=== PATIENT | female | born 1940 | race Caucasian/White ===

== ENCOUNTER 2016-06-20 18:52 | Emergency (ER) | payer OTHER ==
[2016-06-20] MEDS ORDERED: KETOROLAC 30 MG/ML VIAL (J1885) As Ordered ONE (20:47)
--- NOTE | 2016-06-20 21:50 | ECGEPIP ---
Stationary ECG Study [facility] - ED Test Date: 2016-06-20 Pat Name: MARTIN JUAREZ Department: Room: - Gender: F It Project Manager: raudel : 1940 Requested By: SHILO WREN PA-C. Order Number: [id number] Reading MD: Zane Sheehan Measurements Intervals [place] Rate: 63 P: 61 [place]: 171 QRS: -6 QRSD: 90 T: 48 QT: 429 QTc: 440 Interpretive Statements SINUS RHYTHM MODERATE VOLTAGE CRITERIA FOR LVH, CONSIDER NORMAL VARIANT Electronically Signed On 06-20-2016 21:50:23 EST by Zane Sheehan
--- NOTE | 2016-06-20 22:03 | EDDOCDS ---
Physician Documentation [facility] Name: Tatiana Cooley Age: 75 yrs Sex: Female : 1940 Arrival Date: 06/20/2016 Time: 18:52 Bed TR7 Private MD: Frank England Disposition: 06/20/16 21:24 Discharged to Home/Self Care. Impression: Radiculopathy, lumbar region - due to scoliosis, degenerative disc disease and spondylolisthesis lumbar spine, Pain in right hip - mild osteoarthritis. - Condition is Stable. - Discharge Instructions: Arthritis, Nonspecific, Lumbosacral Radiculopathy. - Prescriptions for Naprosyn 250 mg Oral Tablet - take 1 tablet by ORAL route every 12 hours take with food; 30 tablet. - Medication Reconciliation, Local Pharmacy Hours form. - Follow up: Frank England MD; When: 2 - 3 days; Reason: Recheck today's complaints, Continuance of care. Follow up: Emergency Department; When: As needed; Reason: Trouble breathing, Worsening of conditions. - Problem is new. - Symptoms have improved. Historical: - Allergies: Codeine Sulfate (Swelling); Lisinopril (Cough); Latex (Dermatitis); Darvocet-N 100 (Swelling); Flexeril (Swelling); Procardia (Swelling); Ultram (Swelling); Vicodin (Swelling); fioronel (Swelling); Keflex (Swelling); Dairy Products (Swelling); - Home Meds: 1. carvedilol 6.25 mg oral tab 1 tab 2 times per day 2. losartan 100 mg oral tab 1 tab once daily 3. Sertraline 100 mg daily 4. simvastatin 40 mg Oral tab 1 tab once daily 5. trazodone 100 mg Oral tab nightly 6. Nasonex 50 mcg/actuation Nasal spry 2 sprays once daily 7. aspirin 81 mg Oral TbEC 1 tab once daily 8. Vitamin B-12 1,000 mcg Oral tab daily 9. Vitamin D Oral 1,000 unit daily 10. Restasis daily - PMHx: Hypertension; "broken heart syndrome"; Seasonal Allergies; Hypercholesterolemia; Depression; Anxiety; - PSHx: Knee Arthroplasty, Left; Knee surgery- Right; - Social history: Smoking status: Patient states was never smoker of tobacco. No barriers to communication noted, The patient speaks fluent Sami. - Family history: Not pertinent. - : The pt / caregiver states he / she is not on anticoagulants. Home medication list is obtained from the patient. - Exposure Risk Screening:: None identified. Vital Signs: 06/20 18:54 BP 197 / 104; Pulse 66; Resp 16; Temp 98.1(O); Pulse Ox 98% on R/A; Weight 66.68 kg / elp 147 lbs (R); Height 5 ft. 2 in. (157.48 cm) (R); Pain 10/10; 19:52 BP 186 / 78 LA Sitting (man/reg); cln 21:31 Pulse 67 MON; Resp 22 S; Temp 98.7(TE); Pulse Ox 97% on R/A; Pain 8/10; cln 21:34 BP 191 / 64 RA Sitting (man/reg); cln 18:54 Body Mass Index 26.89 (66.68 kg, 157.48 cm) elp MDM: 19:37 Vital Signs ordered. ar2 19:37 ECG WITH READING ER PHYS+CARDIAG ordered. EDMS 19:38 Hip, (AP/Lat) Ordered. EDMS 19:38 Spine. Lumbosacral, Complete Ordered. EDMS 20:43 ketorolac 30 mg IM once ordered. ar2 21:38 Financial registration complete. ks16 21:48 [facility] Payment Agreement was scanned into [employer] and attached to record. [email or web address] Administered Medications: 20:51 Drug: ketorolac 30 mg [ketorolac 30 mg/mL (1 mL) injection solution (1 mL)] Route: IM; [facility] Site: left gluteus; Signatures: Dispatcher [employer] EDMS Holly Hernandez RN RN kmg1 Ramsey Woodward, KASHIF PALashawn ar2 Katherine Gordillo RN RN af2 Katie Simon, Reg Reg ks16 The chart was reviewed and I authenticate all verbal orders and agree with the evaluation and treatment provided.Attachments: 21:48 [facility] Payment Agreement ks16 MTDD
--- NOTE | 2016-06-20 22:03 | EDDOCDS ---
Nurse's Notes [facility] Name: Tatiana Cooley Age: 75 yrs Sex: Female : 1940 Arrival Date: 06/20/2016 Time: 18:52 Bed TR7 Private MD: Frank England Diagnosis: Radiculopathy, lumbar region-due to scoliosis, degenerative disc disease and spondylolisthesis lumbar spine;Pain in right hip-mild osteoarthritis Presentation: 06/20 19:01 Presenting complaint: Patient states: severe pain in left groin and hip, since last af2 Tuesday. denies injury. Adult Sepsis Screening: The patient does not have new or worsening altered mentation. Patient's respiratory rate is less than 22. Systolic blood pressure is greater than 100. Patient has a qSOFA score of 0- Negative Sepsis Screen. Suicide/Homicide risk assessment- the patient denies having any suicidal and/or homicidal ideations and does not present with any other emotional, behavioral or mental health complaints. Status: Patient is not a line service attendant or dependent. Transition of care: patient was not received from another setting of care. 19:01 Acuity: COSTA Level 4 af2 19:01 Method Of Arrival: Walkin/Carried/Asstd af2 Triage Assessment: 19:09 General: Appears in no apparent distress, Behavior is cooperative. Pain: Location: left af2 hip and left inner thigh Pain currently is 10 out of 10 on a pain scale. GI: Reports none. Derm: Skin is normal. Historical: - Allergies: Codeine Sulfate (Swelling); Lisinopril (Cough); Latex (Dermatitis); Darvocet-N 100 (Swelling); Flexeril (Swelling); Procardia (Swelling); Ultram (Swelling); Vicodin (Swelling); fioronel (Swelling); Keflex (Swelling); Dairy Products (Swelling); - Home Meds: 1. carvedilol 6.25 mg oral tab 1 tab 2 times per day 2. losartan 100 mg oral tab 1 tab once daily 3. Sertraline 100 mg daily 4. simvastatin 40 mg Oral tab 1 tab once daily 5. trazodone 100 mg Oral tab nightly 6. Nasonex 50 mcg/actuation Nasal spry 2 sprays once daily 7. aspirin 81 mg Oral TbEC 1 tab once daily 8. Vitamin B-12 1,000 mcg Oral tab daily 9. Vitamin D Oral 1,000 unit daily 10. Restasis daily - PMHx: Hypertension; "broken heart syndrome"; Seasonal Allergies; Hypercholesterolemia; Depression; Anxiety; - PSHx: Knee Arthroplasty, Left; Knee surgery- Right; - Social history: Smoking status: Patient states was never smoker of tobacco. No barriers to communication noted, The patient speaks fluent Wolof. - Family history: Not pertinent. - : The pt / caregiver states he / she is not on anticoagulants. Home medication list is obtained from the patient. - Exposure Risk Screening:: None identified. Screenin:43 Screening information is obtained from the patient. Fall risk: No risks identified. kmg1 Assistance ADL's: requires no assistance with activities of daily living. Abuse/DV Screen: The patient / caregiver reports he/she is: not in a situation that causes fear, pain or injury. Nutritional screening: No deficits noted. Advance Directives: There is no active DNR order. home support is adequate. Assessment: 20:50 General: Appears uncomfortable, Behavior is appropriate for age, cooperative, pleasant. kmg1 Pain: Location: coccyx, left lower back, left femoral area, left inguinal area and left hip Pain currently is 10 out of 10 on a pain scale. Quality of pain is described as radiating, sharp, shooting. GI: No deficits noted. 21:43 Reassessment: Patient appears in no apparent distress at this time. Patient states kmg1 feeling better. Patient states symptoms have improved. 22:01 GI: kmg1 Vital Signs: 18:54 BP 197 / 104; Pulse 66; Resp 16; Temp 98.1(O); Pulse Ox 98% on R/A; Weight 66.68 kg elp (R); Height 5 ft. 2 in. (157.48 cm) (R); Pain 10/10; 19:52 BP 186 / 78 LA Sitting (man/reg); cln 21:31 Pulse 67 MON; Resp 22 S; Temp 98.7(TE); Pulse Ox 97% on R/A; Pain 8/10; cln 21:34 BP 191 / 64 RA Sitting (man/reg); cln 18:54 Body Mass Index 26.89 (66.68 kg, 157.48 cm) elp Vitals: 18:54 Log In Time: June 20, 2016 at 18:52. elp ED Course: 18:53 Patient visited by Roro Driver PCA. elp 18:53 Frank England MD is Private Physician. elp 18:53 Patient moved to Waiting elp 18:55 Patient visited by Roro Driver PCA. elp 18:55 Patient moved to Pre RCE elp 19:02 Triage Initiated af2 19:10 Patient visited by Katherine Gordillo RN. af2 19:22 Patient moved to Triage 3 cln 19:23 Ramsey Woodward PA-C is [facility]. ar2 19:23 Red Rae DO is Attending Physician. ar2 19:23 Patient visited by Ramsey Woodward PA-C. ar2 19:49 Patient visited by Saniya Santamaria PCA. cln 19:49 EKG done. (by ED staff). Reviewed by Ramsey Woodward PA-C. cln 19:52 Patient visited by Saniya Santamaria PCA. cln 19:54 Patient moved to TR1 cln 20:16 Patient moved to PR2 / 26 mb9 21:23 Frank England MD is Referral Physician. ar2 21:31 Patient visited by Saniya Santamaria PCA. cln 21:35 Patient visited by Saniya Santamaria PCA. cln 21:43 Patient moved to TR2 cln 21:43 The patient / caregiver is instructed regarding the plan of care and ED course. kmg1 21:43 No IV's were initiated during this patient's visit. No procedures done that require kmg1 assistance. 21:48 [facility] Payment Agreement was scanned into [employer] and attached to record. ks16 21:53 Patient moved to TR7 cln Administered Medications: 20:51 Drug: ketorolac 30 mg [ketorolac 30 mg/mL (1 mL) injection solution (1 mL)] Route: IM; kmg1 Site: left gluteus; Order Results: There are currently no results for this order. Outcome: 21:24 Discharge ordered by Provider. ar2 21:43 Discharge Assessment: Patient awake, alert and oriented x 3. No cognitive and/or kmg1 functional deficits noted. Patient verbalized understanding of disposition instructions. Patient awake and alert. patient administered narcotics - no. The following High Risk Discharge criteria are identified: None. Discharged to home ambulatory. Condition: stable. Discharge instructions given to patient, Instructed on discharge instructions, follow up and referral plans. medication usage, Demonstrated understanding of instructions, medications, Pt was receptive of discharge instructions/ teaching. Prescriptions given X 1. No special radiology studies were completed. Property sent home with patient. 22:01 Patient left the ED. kmg1 Signatures: Holly Hernandez, RN RN kmg1 Ramsey Woodward, KASHIF PALashawn ar2 Roro Driver, TERRA COTTA MOLD MAKER TERRA COTTA MOLD MAKER elp Rom Almeida,RN RN mb9 Katherine GordilloRN RN af2 Katie Simon, Reg Reg ks16 Saniya Santamaria, TERRA COTTA MOLD MAKER TERRA COTTA MOLD MAKER cln MTDD
--- NOTE | 2016-06-21 09:05 | REP ---
Clinical: Left hip pain. Technique: Neutral and frog lateral views of the left hip. Findings: Moderate age-related arthritic changes include subtle increased subchondral sclerosis as well as joint space narrowing and spurring along the anterior superior acetabula. No acute fracture or dislocation. No periarticular calcifications. Surrounding soft tissues are normal. Impression: Mild age-related arthritic degenerative changes Signed by Dinh Yi MD 06/21/2016 08:57 A
--- NOTE | 2016-06-21 09:07 | REP ---
Clinical: Radiculopathy. Technique: AP, lateral, bilateral oblique and coned-down views of the lumbosacral spine. Findings: Advanced chronic degenerative disc osteophyte complexes are appreciated. Findings include chronic mild levoconvex scoliosis centered at the T12-L1 level along with osteopenia, osteophytosis, hypertrophic facet changes, disc space narrowing, and grade 1 anterolisthesis at the L4-5 level. No acute fracture / compression injury identified. Impression: Advanced degenerative changes as detailed above. Signed by Dinh Yi MD 06/21/2016 08:58 A
--- NOTE | 2016-06-22 23:02 | EDDOCDS ---
Physician Documentation [facility] Name: Tatiana Cooley Age: 75 yrs Sex: Female : 1940 Arrival Date: 06/20/2016 Time: 18:52 Bed TR7 Private MD: Frank England Disposition: 06/20/16 21:24 Discharged to Home/Self Care. Impression: Radiculopathy, lumbar region - due to scoliosis, degenerative disc disease and spondylolisthesis lumbar spine, Pain in right hip - mild osteoarthritis. - Condition is Stable. - Discharge Instructions: Arthritis, Nonspecific, Lumbosacral Radiculopathy. - Prescriptions for Naprosyn 250 mg Oral Tablet - take 1 tablet by ORAL route every 12 hours take with food; 30 tablet. - Medication Reconciliation, Local Pharmacy Hours form. - Follow up: Frank England MD; When: 2 - 3 days; Reason: Recheck today's complaints, Continuance of care. Follow up: Emergency Department; When: As needed; Reason: Trouble breathing, Worsening of conditions. - Problem is new. - Symptoms have improved. Historical: - Allergies: Codeine Sulfate (Swelling); Lisinopril (Cough); Latex (Dermatitis); Darvocet-N 100 (Swelling); Flexeril (Swelling); Procardia (Swelling); Ultram (Swelling); Vicodin (Swelling); fioronel (Swelling); Keflex (Swelling); Dairy Products (Swelling); - Home Meds: 1. carvedilol 6.25 mg oral tab 1 tab 2 times per day 2. losartan 100 mg oral tab 1 tab once daily 3. Sertraline 100 mg daily 4. simvastatin 40 mg Oral tab 1 tab once daily 5. trazodone 100 mg Oral tab nightly 6. Nasonex 50 mcg/actuation Nasal spry 2 sprays once daily 7. aspirin 81 mg Oral TbEC 1 tab once daily 8. Vitamin B-12 1,000 mcg Oral tab daily 9. Vitamin D Oral 1,000 unit daily 10. Restasis daily - PMHx: Hypertension; "broken heart syndrome"; Seasonal Allergies; Hypercholesterolemia; Depression; Anxiety; - PSHx: Knee Arthroplasty, Left; Knee surgery- Right; - Social history: Smoking status: Patient states was never smoker of tobacco. No barriers to communication noted, The patient speaks fluent Irish. - Family history: Not pertinent. - : The pt / caregiver states he / she is not on anticoagulants. Home medication list is obtained from the patient. - Exposure Risk Screening:: None identified. Vital Signs: 06/20 18:54 BP 197 / 104; Pulse 66; Resp 16; Temp 98.1(O); Pulse Ox 98% on R/A; Weight 66.68 kg / elp 147 lbs (R); Height 5 ft. 2 in. (157.48 cm) (R); Pain 10/10; 19:52 BP 186 / 78 LA Sitting (man/reg); cln 21:31 Pulse 67 MON; Resp 22 S; Temp 98.7(TE); Pulse Ox 97% on R/A; Pain 8/10; cln 21:34 BP 191 / 64 RA Sitting (man/reg); cln 18:54 Body Mass Index 26.89 (66.68 kg, 157.48 cm) elp MDM: 19:37 Vital Signs ordered. ar2 19:37 ECG WITH READING ER PHYS+CARDIAG ordered. EDMS 19:38 Hip, (AP/Lat) Ordered. EDMS 19:38 Spine. Lumbosacral, Complete Ordered. EDMS 20:43 ketorolac 30 mg IM once ordered. ar2 21:38 Financial registration complete. [email or web address] 21:48 [facility] Payment Agreement was scanned into [employer] and attached to record. [facility] 06/21 11:46 T-Sheet-- Draft Copy was scanned into [employer] and attached to record. 11:47 ECG/EKG was scanned into [employer] and attached to record. gb Administered Medications: 06/20 20:51 Drug: ketorolac 30 mg [ketorolac 30 mg/mL (1 mL) injection solution (1 mL)] Route: IM; km Site: left gluteus; Signatures: Dispatcher [employer] EDMS Holly Hernandez RN RN kmg1 Lyudmila Hyatt, Reg Reg gb Ramsey Woodward PA-C PA-C ar2 Katherine Gordillo RN RN af2 Katie Simon, Reg Reg ks16 The chart was reviewed and I authenticate all verbal orders and agree with the evaluation and treatment provided.Attachments: 21:48 [facility] Payment Agreement [email or web address] 06/21 11:46 T-Sheet-- Draft Copy gb 11:47 ECG/EKG gb Chart Complete MTDD
--- NOTE | 2016-06-22 23:02 | EDDOCDS ---
Physician Documentation [facility] Name: Tatiana Cooley Age: 75 yrs Sex: Female : 1940 Arrival Date: 06/20/2016 Time: 18:52 Bed TR7 Private MD: Frank England Disposition: 06/20/16 21:24 Discharged to Home/Self Care. Impression: Radiculopathy, lumbar region - due to scoliosis, degenerative disc disease and spondylolisthesis lumbar spine, Pain in right hip - mild osteoarthritis. - Condition is Stable. - Discharge Instructions: Arthritis, Nonspecific, Lumbosacral Radiculopathy. - Prescriptions for Naprosyn 250 mg Oral Tablet - take 1 tablet by ORAL route every 12 hours take with food; 30 tablet. - Medication Reconciliation, Local Pharmacy Hours form. - Follow up: Frank England MD; When: 2 - 3 days; Reason: Recheck today's complaints, Continuance of care. Follow up: Emergency Department; When: As needed; Reason: Trouble breathing, Worsening of conditions. - Problem is new. - Symptoms have improved. Historical: - Allergies: Codeine Sulfate (Swelling); Lisinopril (Cough); Latex (Dermatitis); Darvocet-N 100 (Swelling); Flexeril (Swelling); Procardia (Swelling); Ultram (Swelling); Vicodin (Swelling); fioronel (Swelling); Keflex (Swelling); Dairy Products (Swelling); - Home Meds: 1. carvedilol 6.25 mg oral tab 1 tab 2 times per day 2. losartan 100 mg oral tab 1 tab once daily 3. Sertraline 100 mg daily 4. simvastatin 40 mg Oral tab 1 tab once daily 5. trazodone 100 mg Oral tab nightly 6. Nasonex 50 mcg/actuation Nasal spry 2 sprays once daily 7. aspirin 81 mg Oral TbEC 1 tab once daily 8. Vitamin B-12 1,000 mcg Oral tab daily 9. Vitamin D Oral 1,000 unit daily 10. Restasis daily - PMHx: Hypertension; "broken heart syndrome"; Seasonal Allergies; Hypercholesterolemia; Depression; Anxiety; - PSHx: Knee Arthroplasty, Left; Knee surgery- Right; - Social history: Smoking status: Patient states was never smoker of tobacco. No barriers to communication noted, The patient speaks fluent Portuguese. - Family history: Not pertinent. - : The pt / caregiver states he / she is not on anticoagulants. Home medication list is obtained from the patient. - Exposure Risk Screening:: None identified. Vital Signs: 06/20 18:54 BP 197 / 104; Pulse 66; Resp 16; Temp 98.1(O); Pulse Ox 98% on R/A; Weight 66.68 kg / elp 147 lbs (R); Height 5 ft. 2 in. (157.48 cm) (R); Pain 10/10; 19:52 BP 186 / 78 LA Sitting (man/reg); cln 21:31 Pulse 67 MON; Resp 22 S; Temp 98.7(TE); Pulse Ox 97% on R/A; Pain 8/10; cln 21:34 BP 191 / 64 RA Sitting (man/reg); cln 18:54 Body Mass Index 26.89 (66.68 kg, 157.48 cm) elp MDM: 19:37 Vital Signs ordered. ar2 19:37 ECG WITH READING ER PHYS+CARDIAG ordered. EDMS 19:38 Hip, (AP/Lat) Ordered. EDMS 19:38 Spine. Lumbosacral, Complete Ordered. EDMS 20:43 ketorolac 30 mg IM once ordered. ar2 21:38 Financial registration complete. [email or web address] 21:48 [facility] Payment Agreement was scanned into [employer] and attached to record. [facility] 06/21 11:46 T-Sheet-- Draft Copy was scanned into [employer] and attached to record. 11:47 ECG/EKG was scanned into [employer] and attached to record. gb Administered Medications: 06/20 20:51 Drug: ketorolac 30 mg [ketorolac 30 mg/mL (1 mL) injection solution (1 mL)] Route: IM; km Site: left gluteus; Signatures: Dispatcher [employer] EDMS Holly Hernandez RN RN kmg1 Lyudmila Hyatt, Reg Reg gb Ramsey Woodward PA-C PA-C ar2 Katherine Gordillo RN RN af2 Katie Simon, Reg Reg ks16 The chart was reviewed and I authenticate all verbal orders and agree with the evaluation and treatment provided.Attachments: 21:48 [facility] Payment Agreement [email or web address] 06/21 11:46 T-Sheet-- Draft Copy gb 11:47 ECG/EKG gb Chart Complete MTDD
--- NOTE | 2016-06-22 23:02 | EDDOCDS ---
Nurse's Notes [facility] Name: Tatiana Cooley Age: 75 yrs Sex: Female : 1940 Arrival Date: 06/20/2016 Time: 18:52 Bed TR7 Private MD: Frank England Diagnosis: Radiculopathy, lumbar region-due to scoliosis, degenerative disc disease and spondylolisthesis lumbar spine;Pain in right hip-mild osteoarthritis Presentation: 06/20 19:01 Presenting complaint: Patient states: severe pain in left groin and hip, since last af2 Tuesday. denies injury. Adult Sepsis Screening: The patient does not have new or worsening altered mentation. Patient's respiratory rate is less than 22. Systolic blood pressure is greater than 100. Patient has a qSOFA score of 0- Negative Sepsis Screen. Suicide/Homicide risk assessment- the patient denies having any suicidal and/or homicidal ideations and does not present with any other emotional, behavioral or mental health complaints. Status: Patient is not a rn women services or dependent. Transition of care: patient was not received from another setting of care. 19:01 Acuity: COSTA Level 4 af2 19:01 Method Of Arrival: Walkin/Carried/Asstd af2 Triage Assessment: 19:09 General: Appears in no apparent distress, Behavior is cooperative. Pain: Location: left af2 hip and left inner thigh Pain currently is 10 out of 10 on a pain scale. GI: Reports none. Derm: Skin is normal. Historical: - Allergies: Codeine Sulfate (Swelling); Lisinopril (Cough); Latex (Dermatitis); Darvocet-N 100 (Swelling); Flexeril (Swelling); Procardia (Swelling); Ultram (Swelling); Vicodin (Swelling); fioronel (Swelling); Keflex (Swelling); Dairy Products (Swelling); - Home Meds: 1. carvedilol 6.25 mg oral tab 1 tab 2 times per day 2. losartan 100 mg oral tab 1 tab once daily 3. Sertraline 100 mg daily 4. simvastatin 40 mg Oral tab 1 tab once daily 5. trazodone 100 mg Oral tab nightly 6. Nasonex 50 mcg/actuation Nasal spry 2 sprays once daily 7. aspirin 81 mg Oral TbEC 1 tab once daily 8. Vitamin B-12 1,000 mcg Oral tab daily 9. Vitamin D Oral 1,000 unit daily 10. Restasis daily - PMHx: Hypertension; "broken heart syndrome"; Seasonal Allergies; Hypercholesterolemia; Depression; Anxiety; - PSHx: Knee Arthroplasty, Left; Knee surgery- Right; - Social history: Smoking status: Patient states was never smoker of tobacco. No barriers to communication noted, The patient speaks fluent Khmer. - Family history: Not pertinent. - : The pt / caregiver states he / she is not on anticoagulants. Home medication list is obtained from the patient. - Exposure Risk Screening:: None identified. Screenin:43 Screening information is obtained from the patient. Fall risk: No risks identified. kmg1 Assistance ADL's: requires no assistance with activities of daily living. Abuse/DV Screen: The patient / caregiver reports he/she is: not in a situation that causes fear, pain or injury. Nutritional screening: No deficits noted. Advance Directives: There is no active DNR order. home support is adequate. Assessment: 20:50 General: Appears uncomfortable, Behavior is appropriate for age, cooperative, pleasant. kmg1 Pain: Location: coccyx, left lower back, left femoral area, left inguinal area and left hip Pain currently is 10 out of 10 on a pain scale. Quality of pain is described as radiating, sharp, shooting. GI: No deficits noted. 21:43 Reassessment: Patient appears in no apparent distress at this time. Patient states kmg1 feeling better. Patient states symptoms have improved. 22:01 GI: kmg1 Vital Signs: 18:54 BP 197 / 104; Pulse 66; Resp 16; Temp 98.1(O); Pulse Ox 98% on R/A; Weight 66.68 kg elp (R); Height 5 ft. 2 in. (157.48 cm) (R); Pain 10/10; 19:52 BP 186 / 78 LA Sitting (man/reg); cln 21:31 Pulse 67 MON; Resp 22 S; Temp 98.7(TE); Pulse Ox 97% on R/A; Pain 8/10; cln 21:34 BP 191 / 64 RA Sitting (man/reg); cln 18:54 Body Mass Index 26.89 (66.68 kg, 157.48 cm) elp Vitals: 18:54 Log In Time: June 20, 2016 at 18:52. [facility] ED Course: 18:53 Patient visited by Roro Driver PCA. elp 18:53 Frank England MD is Private Physician. elp 18:53 Patient moved to Waiting elp 18:55 Patient visited by Roro Driver PCA. elp 18:55 Patient moved to Pre RCE elp 19:02 Triage Initiated af2 19:10 Patient visited by Katherine GordilloRN. af2 19:22 Patient moved to Triage 3 cln 19:23 Ramsey Wren PA-C is [facility]. ar2 19:23 Red Rae DO is Attending Physician. ar2 19:23 Patient visited by Ramsey Wren PA-C. ar2 19:49 Patient visited by Saniya Santamaria PCA. cln 19:49 EKG done. (by ED staff). Reviewed by Ramsey Wren PA-C. cln 19:52 Patient visited by Saniya Santamaria PCA. cln 19:54 Patient moved to TR1 cln 20:16 Patient moved to PR2 / 26 mb9 21:23 Frank England MD is Referral Physician. ar2 21:31 Patient visited by Saniya Santamaria PCA. cln 21:35 Patient visited by Saniya Santamaria PCA. cln 21:43 Patient moved to TR2 cln 21:43 The patient / caregiver is instructed regarding the plan of care and ED course. kmg1 21:43 No IV's were initiated during this patient's visit. No procedures done that require kmg1 assistance. 21:48 [facility] Payment Agreement was scanned into Bringg and attached to record. ks16 21:53 Patient moved to TR7 cln 22:16 EKG-ADULT Returned. EDMS 06/21 09:23 Hip, (AP/Lat) Returned. EDMS 09:23 Spine. Lumbosacral, Complete Returned. EDMS 11:46 T-Sheet-- Draft Copy was scanned into Bringg and attached to record. gb 11:47 ECG/EKG was scanned into Bringg and attached to record. gb Administered Medications: 06/20 20:51 Drug: ketorolac 30 mg [ketorolac 30 mg/mL (1 mL) injection solution (1 mL)] Route: IM; kmg1 Site: left gluteus; Order Results: Radiology Order: EKG-ADULT Test: EKG-ADULT REASON FOR EXAMINATION: htn; Stationary ECG Study; [facility] - ED; ; Test Date: 2016-06-20; Pat Name: TATIANA COOLEY Department:; Room: -; Gender: F Cop Winder: raudel; : 1940 Requested By: RAMSEY WREN PA-C.; Order Number: [id number] Reading MD: Zane Sheehan; Measurements; Intervals Dodge; Rate: 63 P: 61; NC: 171 QRS: -6; QRSD: 90 T: 48; QT: 429; QTc: 440; Interpretive Statements; SINUS RHYTHM; MODERATE VOLTAGE CRITERIA FOR LVH, CONSIDER NORMAL VARIANT; ; Electronically Signed On 06-20-2016 21:50:23 EST by Zane Sheehan; Radiology Order: Hip, (AP/Lat) Test: Hip, (AP/Lat) REASON FOR EXAMINATION: left hip pain, spontaneous; Clinical: Left hip pain.; ; Technique: Neutral and frog lateral views of the left hip.; ; Findings: Moderate age-related arthritic changes include subtle increased; subchondral sclerosis as well as joint space narrowing and spurring along the; anterior superior acetabula. No acute fracture or dislocation. No periarticular; calcifications. Surrounding soft tissues are normal.; ; Impression:; Mild age-related arthritic degenerative changes; ; ; Signed by; Dinh Yi MD 06/21/2016 08:57 A; Radiology Order: Spine. Lumbosacral, Complete Test: Spine. Lumbosacral, Complete REASON FOR EXAMINATION: ? lumbar radiculopathy; Clinical: Radiculopathy.; ; Technique: AP, lateral, bilateral oblique and coned-down views of the; lumbosacral spine.; ; Findings:; Advanced chronic degenerative disc osteophyte complexes are appreciated.; Findings include chronic mild levoconvex scoliosis centered at the T12-L1 level; along with osteopenia, osteophytosis, hypertrophic facet changes, disc space; narrowing, and grade 1 anterolisthesis at the L4-5 level. No acute fracture /; compression injury identified.; ; Impression:; Advanced degenerative changes as detailed above.; ; ; Signed by; Dinh Yi MD 06/21/2016 08:58 A; Outcome: 21:24 Discharge ordered by Provider. ar2 21:43 Discharge Assessment: Patient awake, alert and oriented x 3. No cognitive and/or kmg1 functional deficits noted. Patient verbalized understanding of disposition instructions. Patient awake and alert. patient administered narcotics - no. The following High Risk Discharge criteria are identified: None. Discharged to home ambulatory. Condition: stable. Discharge instructions given to patient, Instructed on discharge instructions, follow up and referral plans. medication usage, Demonstrated understanding of instructions, medications, Pt was receptive of discharge instructions/ teaching. Prescriptions given X 1. No special radiology studies were completed. Property sent home with patient. 22:01 Patient left the ED. [facility] [place] Signatures: Dispatcher [employer] EDMS Holly Hernandez, RN RN kmg1 Lyudmila Hyatt, Reg Reg gb Ramsey Wren, PA-C PA-C ar2 Roro Driver, ENDS DOWN CHECKER ENDS DOWN CHECKER Rom LaurenRN RN mb9 Katherine Gordillo RN RN af2 Katie Simon, Reg Reg ks16 Saniya Santamaria, ENDS DOWN CHECKER ENDS DOWN CHECKER cln Chart Complete MTDD
== END 2016-06-20 22:01 | disposition home or self-care (01) ==
LOC: M ED 18:52
DX: M54.16 Radiculopathy, lumbar region (principal); M41.9 Scoliosis, unspecified; M43.16 Spondylolisthesis, lumbar region; M51.37 Other intervertebral disc degeneration, lumbosacral region; M16.12 Unilateral primary osteoarthritis, left hip; I10 Essential (primary) hypertension; J30.9 Allergic rhinitis, unspecified; E78.00 Pure hypercholesterolemia, unspecified; F32.9 Major depressive disorder, single episode, unspecified; F41.9 Anxiety disorder, unspecified; I51.81 Takotsubo syndrome; Z96.652 Presence of left artificial knee joint; Z79.82 Long term (current) use of aspirin; Z79.899 Other long term (current) drug therapy; Z88.2 Allergy status to sulfonamides; Z88.5 Allergy status to narcotic agent; Z88.1 Allergy status to other antibiotic agents; Z88.8 Allergy status to other drugs, medicaments and biological substances; Z91.040 Latex allergy status; Z91.011 Allergy to milk products
CPT/HCPCS: 72110; 73502; 93005; 96372; 99284; J1885

== ENCOUNTER 2016-07-12 09:06 | Outpatient (RCR) | payer OTHER | END 2016-07-13 | LOC: M PT 09:06 | PROVIDERS: ATTEND Nurse Practitioner Family | DX: Z51.89 Encounter for other specified aftercare (principal); M54.5 Low back pain | CPT/HCPCS: 97110; 97140; 97162; G8978; G8979 ==

== ENCOUNTER 2016-08-04 09:07 | Outpatient (RCR) | payer OTHER | END 2016-08-10 | LOC: M PT 09:07 | PROVIDERS: ATTEND Nurse Practitioner Family | DX: M54.5 Low back pain (principal) | CPT/HCPCS: 97035; 97110; 97140; G8978; G8979; G8980 ==

== ENCOUNTER → 2016-11-29 | Outpatient (CLI) | payer OTHER ==
[2016-11-29 11:54] LABS: MEAN CORPUSCULAR HEMOGLOBIN 34.5 pg (27.0-33.0); MEAN CORPUSCULAR HGB CONC 34.4 g/dl (32.0-36.5); MEAN CORPUSCULAR VOLUME 100.2 fl (80.0-96.0); RED CELL DISTRIBUTION WIDTH 12.9 % (11.5-14.5)
[2016-11-29 12:49] LABS: ALBUMIN 3.4 GM/DL (3.2-5.2); ALBUMIN/GLOBULIN RATIO 1.06 (1.00-1.93); BILIRUBIN,TOTAL 0.5 MG/DL (0.2-1.0); CALCIUM LEVEL 9.1 MG/DL (8.8-10.2); CREATININE FOR GFR 1.1 MG/DL (0.55-1.02); GLOMERULAR FILTRATION RATE 51.4 (>39); POTASSIUM SERUM 4.2 MEQ/L (3.5-5.1); TOTAL PROTEIN 6.6 GM/DL (6.4-8.2)
== END ==
LOC: M LAB 10:35
PROVIDERS: ATTEND Family Medicine
DX: I51.81 Takotsubo syndrome (principal); E78.00 Pure hypercholesterolemia, unspecified

== ENCOUNTER → 2016-12-16 | Outpatient (CLI) | payer OTHER ==
--- NOTE | 2016-12-20 10:19 | DEXA ---
AP SPINE L1 - L4 1.468 2.2 4.0 LT FEMUR TOTAL 0.804 -1.6 0.2 RT FEMUR TOTAL 0.885 -1.0 0.8 TOTAL BODY TOTAL OTHER DUAL FEMUR FRAX* ASSESSMENT Risk factors: Adult fractures. 10 year probability of fracture Major osteoporotic fracture 18.8 % Hip fracture 4.1 % COMMENTS: Normal bone densitometry of the spine. There is low bone density of the hips. The density of the spine has increased 10.9% since the initial exam on 1999. The spine density has increased 10.9% since the most recent exam on 07/20/2010. The density of the left hip has decreased 9.7% since the initial exam on 1999. The density of the left hip has decreased 5.7% since the most recent exam on 12/2010. The density of the right hip has decreased 6.2% since the initial exam on 1999. The density of the right hip has decreased 2.3% since the most recent exam on . FOLLOW-UP: Recommendation for the next bone density exam: No recommendation. MTDD
== END ==
LOC: M WHC 12:52
PROVIDERS: ATTEND Family Medicine
DX: M83.8 Other adult osteomalacia (principal)

== ENCOUNTER → 2016-12-31 | Outpatient (CLI) | payer OTHER ==
[~2016-12-31] MED LIST: GASTROGRAFIN SOLUTION 30ML (Q9963) As Ordered ONE; ISOVUE-370 76% 100ML VIAL (Q9967) As Ordered ONE
--- NOTE | 2016-12-31 16:03 | REP ---
CT of the abdomen and pelvis with IV and oral contrast: There are no comparison studies. The visualized lung pugh are unremarkable. There is pectus extra of the distal sternum. The hepatic parenchyma is homogeneous. The gallbladder is unremarkable. The pancreas and spleen are unremarkable. The stomach and duodenum are grossly unremarkable. The adrenals are unremarkable. There is bilateral renal cortical atrophy, not unusual for patient age. There are no renal masses or cysts. There is no hydronephrosis. There are parapelvic cysts in the left kidney. There is no bowel distension or obstruction. The mesentery is unremarkable. The abdominal aorta is unremarkable except for calcified atheroma. There is no retroperitoneal adenopathy or mass. Pelvis: The appendix is unremarkable. There is a hysterectomy. The vaginal cuff and adnexa are unremarkable. The bladder is unremarkable. There is no adenopathy or ascites. There is no diverticulosis or diverticulitis. There are no lytic, blastic or destructive skeletal changes. There is degenerative disc disease and facet osteoarthritis in the lumbar spine and lumbar scoliosis. Impression: There is no mass, adenopathy or ascites. There are para pelvic cysts in the left kidney. There is no bowel distension. There is scoliosis, degenerative disc disease and facet osteoarthritis in the lumbar spine. No diverticulosis or diverticulitis. There is a hysterectomy. The vaginal cuff and adnexa are unremarkable. Otherwise, negative CT of the abdomen and pelvis. Signed by Quinn Hoang MD 12/31/2016 03:54 P
== END ==
LOC: M RAD 14:02
PROVIDERS: ATTEND Family Medicine
DX: R10.13 Epigastric pain (principal); R14.0 Abdominal distension (gaseous); R68.81 Early satiety
CPT/HCPCS: 74177; Q9963; Q9967

== ENCOUNTER → 2017-11-04 | Outpatient (CLI) | payer OTHER ==
[2017-11-04 11:17] LABS: HEMATOCRIT 34.4 % (36.0-47.0); HEMOGLOBIN 11.7 g/dl (12.0-15.5); MEAN CORPUSCULAR HEMOGLOBIN 34.8 pg (27.0-33.0); MEAN CORPUSCULAR VOLUME 102.4 fl (80.0-96.0); PLATELET COUNT, AUTOMATED 193 10^3/uL (150-450); RED BLOOD COUNT 3.36 10^6/uL (4.00-5.40); RED CELL DISTRIBUTION WIDTH 12.7 % (11.5-14.5); WHITE BLOOD COUNT 5.2 10^3/uL (4.0-10.0)
[2017-11-04 11:55] LABS: TOTAL 25(OH) VITAMIN D 54.8 NG/ML (30.0-100.0); VITAMIN B12 LEVEL 1065 PG/ML (247-911)
[2017-11-04 11:57] LABS: ESTIMATED AVERAGE GLUCOSE 105 MG/DL (60-110); HEMOGLOBIN A1c 5.3 %
[2017-11-04 12:44] LABS: ALBUMIN 3.3 GM/DL (3.2-5.2); ALKALINE PHOSPHATASE 76 U/L (45-117); ALT/SGPT 19 U/L (12-78); ANION GAP 5 MEQ/L (8-16); AST/SGOT 14 U/L (7-37); BILIRUBIN,TOTAL 0.5 MG/DL (0.2-1.0); BLOOD UREA NITROGEN 21 MG/DL (7-18); CALCIUM LEVEL 8.9 MG/DL (8.8-10.2); CARBON DIOXIDE LEVEL 31 MEQ/L (21-32); CHLORIDE LEVEL 109 MEQ/L (98-107); CHOLESTEROL LEVEL 141 MG/DL (<200); CREATININE FOR GFR 1.19 MG/DL (0.55-1.30); GLOMERULAR FILTRATION RATE 46.9 (>39); GLUCOSE, FASTING 91 MG/DL (70-100); HDL CHOLESTEROL 53 MG/DL (>40); LDL CHOLESTEROL 70.6 MG/DL (<100); NON-HDL-C 88 MG/DL; POTASSIUM SERUM 4.6 MEQ/L (3.5-5.1); SODIUM LEVEL 145 MEQ/L (136-145); TOTAL PROTEIN 6.6 GM/DL (6.4-8.2); TRIGLYCERIDES LEVEL 87 MG/DL (<150)
== END ==
LOC: M LAB 10:33
DX: E53.8 Deficiency of other specified B group vitamins (principal); I11.9 Hypertensive heart disease without heart failure; E78.2 Mixed hyperlipidemia
CPT/HCPCS: 82607

== ENCOUNTER 2018-01-13 17:06 | Emergency (ER) | payer OTHER ==
[2018-01-13] MEDS ORDERED: LIDOCAINE W/EPINEPHRINE 1% 20ML VIAL SC (19:00)
[2018-01-13] MEDS: AUGMENTIN 875 MG TAB PO (19:21)
[2018-01-13] MEDS: ADACEL/BOOSTRIX VACCINE (DIPHTH/PERTUSS/ACELL/TETANUS)0.5ML SYR (90715) IM (19:21)
== END 2018-01-13 20:10 | disposition home or self-care (01) ==
LOC: M ED 17:06
DX: S91.032A Puncture wound without foreign body, left ankle, initial encounter (principal); W54.0XXA Bitten by dog, initial encounter; Y92.098 Other place in other non-institutional residence as the place of occurrence of the external cause; Z88.6 Allergy status to analgesic agent; Z88.8 Allergy status to other drugs, medicaments and biological substances; Z88.5 Allergy status to narcotic agent; Z91.040 Latex allergy status; Z91.018 Allergy to other foods
CPT/HCPCS: 90715

== ENCOUNTER 2018-03-21 18:33 | Emergency (ER) | payer OTHER ==
[2018-03-21 21:08] LABS: BASO % 0.4 % (0.0-1.0); EOS # 0.1 10^3/uL (0.0-0.50); EOS % 2.3 % (0.0-3.0); HEMATOCRIT 37.9 % (36.0-47.0); HEMOGLOBIN 12.3 g/dl (12.0-15.5); IMMATURE GRANULOCYTE % 0.2 % (0-3.0); LYMPH # 1.9 10^3/uL (1.5-4.5); LYMPH % 39.8 % (24.0-44.0); MEAN CORPUSCULAR HEMOGLOBIN 33.7 pg (27.0-33.0); MEAN CORPUSCULAR HGB CONC 32.5 g/dl (32.0-36.5); MEAN CORPUSCULAR VOLUME 103.8 fl (80.0-96.0); MONO # 0.5 10^3/uL (0.0-0.8); MONO % 10.4 % (0.0-5.0); NEUTROPHILS # 2.3 10^3/uL (1.8-7.7); NEUTROPHILS % 46.9 % (36.0-66.0); PLATELET COUNT, AUTOMATED 192 10^3/uL (150-450); RED BLOOD COUNT 3.65 10^6/uL (4.00-5.40); RED CELL DISTRIBUTION WIDTH 12.7 % (11.5-14.5); WHITE BLOOD COUNT 4.8 10^3/uL (4.0-10.0)
[2018-03-21 21:34] LABS: ALBUMIN 3.4 GM/DL (3.2-5.2); ALBUMIN/GLOBULIN RATIO 0.97 (1.00-1.93); ALKALINE PHOSPHATASE 81 U/L (45-117); ALT/SGPT 19 U/L (12-78); ANION GAP 8 MEQ/L (8-16); AST/SGOT 13 U/L (7-37); BILIRUBIN,DIRECT < 0.1 MG/DL (0.0-0.2); BILIRUBIN,TOTAL 0.2 MG/DL (0.2-1.0); BLOOD UREA NITROGEN 15 MG/DL (7-18); CARBON DIOXIDE LEVEL 27 MEQ/L (21-32); CHLORIDE LEVEL 106 MEQ/L (98-107); CPK CREATINE PHOSPHOKINASE 144 U/L (26-192); CREATININE FOR GFR 1.35 MG/DL (0.55-1.30); GLOMERULAR FILTRATION RATE 40.5 (>39); GLUCOSE, FASTING 121 MG/DL (70-100); MB/CK RELATIVE INDEX 0.97 (< OR =4); POTASSIUM SERUM 4.2 MEQ/L (3.5-5.1); SODIUM LEVEL 141 MEQ/L (136-145); TOTAL PROTEIN 6.9 GM/DL (6.4-8.2); TROPONIN I < 0.02 NG/ML (< 0.10)
[2018-03-21] MEDS: MECLIZINE 25 MG TABLET PO (21:35)
== END 2018-03-22 00:41 | disposition home or self-care (01) ==
LOC: M ED 03-22 00:41
DX: H83.09 Labyrinthitis, unspecified ear (principal); F41.9 Anxiety disorder, unspecified; K21.9 Gastro-esophageal reflux disease without esophagitis; I10 Essential (primary) hypertension; E78.5 Hyperlipidemia, unspecified; Z79.82 Long term (current) use of aspirin; Z79.899 Other long term (current) drug therapy; Z88.6 Allergy status to analgesic agent; Z88.5 Allergy status to narcotic agent; Z88.8 Allergy status to other drugs, medicaments and biological substances; Z91.040 Latex allergy status; Z91.018 Allergy to other foods
CPT/HCPCS: 70450

== ENCOUNTER → 2018-10-31 | Outpatient (CLI) | payer MEDICARE ==
[~2018-10-31] MED LIST changes: +ASPI81TA85 PO; +AUGM875T28 PO; +B-12100010 PO; +CARV6.25; +D31000CA4 PO; +FLUTISP; -GASTROGRAFIN SOLUTION 30ML (Q9963) As Ordered ONE; -ISOVUE-370 76% 100ML VIAL (Q9967) As Ordered ONE; +LOSA100T50; +MAGN1TAB26 PO; +MECL-68 PO; +REST0.05 OP; +SERT-138; +SIMV40TA2
[2018-10-31 11:52] LABS: HEMATOCRIT 37.4 % (36.0-47.0); HEMOGLOBIN 12.5 g/dl (12.0-15.5); MEAN CORPUSCULAR HEMOGLOBIN 34.3 pg (27.0-33.0); MEAN CORPUSCULAR HGB CONC 33.4 g/dl (32.0-36.5); MEAN CORPUSCULAR VOLUME 102.7 fl (80.0-96.0); PLATELET COUNT, AUTOMATED 218 10^3/uL (150-450); RED BLOOD COUNT 3.64 10^6/uL (4.00-5.40); WHITE BLOOD COUNT 4.5 10^3/uL (4.0-10.0)
[2018-10-31 12:52] LABS: ALBUMIN 3.5 GM/DL (3.2-5.2); BILIRUBIN,TOTAL 0.4 MG/DL (0.2-1.0); CALCIUM LEVEL 9.2 MG/DL (8.8-10.2); CHOLESTEROL RISK RATIO 2.619 (<5); CREATININE FOR GFR 1.25 MG/DL (0.55-1.30); GLOMERULAR FILTRATION RATE 44.2 (>39); POTASSIUM SERUM 4.1 MEQ/L (3.5-5.1); TOTAL PROTEIN 6.7 GM/DL (6.4-8.2)
== END ==
LOC: M LAB 11:19
PROVIDERS: ATTEND Family Medicine
DX: F32.9 Major depressive disorder, single episode, unspecified (principal); I11.9 Hypertensive heart disease without heart failure; E78.2 Mixed hyperlipidemia

== ENCOUNTER → 2018-11-07 | Outpatient (CLI) | payer MEDICARE ==
--- NOTE | 2018-11-07 11:36 | REP ---
RIGHT KNEE: Five views. HISTORY: Arthritis. FINDINGS: Five views right knee demonstrate moderate medial and lateral compartment osteoarthritis. There is medial compartment narrowing. Chondrocalcinosis is noted in the medial and lateral compartment. There is medial compartment and mild lateral compartment spurring. Patellofemoral narrowing and spur formation is also noted. There is diffuse osteopenia. Mild vascular calcification is noted. No erosive change is seen. No evidence of joint effusion is noted. IMPRESSION: Three compartment osteoarthritis of the right knee, moderate in degree. Electronically Signed by Rusty Daly MD 11/07/2018 11:54 A
== END ==
LOC: M ADAMS 09:58
PROVIDERS: ATTEND Family Medicine
DX: M17.11 Unilateral primary osteoarthritis, right knee (principal)
CPT/HCPCS: 73564; G0463

== ENCOUNTER → 2019-05-13 | Outpatient (CLI) | payer MEDICARE ==
[~2019-05-13] MED LIST changes: +ACET-683 PO; -SIMV40TA2; +SIMV40TA20; +SOMA350T PO
--- NOTE | 2019-05-13 13:08 | REP ---
Clinical: Right hip pain. Technique: Neutral and frog lateral views of the right hip. Findings: Moderate arthritic degenerative changes. No acute fracture or dislocation. Surrounding soft tissues are unremarkable. Impression: No acute fracture or dislocation. Electronically Signed by Dinh Yi MD 05/13/2019 01:01 P
== END ==
LOC: M LRY 12:46
PROVIDERS: ATTEND Nurse Practitioner Family
DX: M16.11 Unilateral primary osteoarthritis, right hip (principal); M25.551 Pain in right hip
CPT/HCPCS: 73502; 81002; G0463

== ENCOUNTER → 2019-05-13 | Outpatient (REF) | payer MEDICARE ==
[~2019-05-13] MED LIST changes: -ACET-683 PO; -SOMA350T PO
== END ==
LOC: M SFHCLERA 13:17
PROVIDERS: ATTEND Nurse Practitioner Family
DX: M54.9 Dorsalgia, unspecified (principal)

== ENCOUNTER 2019-05-20 14:54 | Emergency (ER) | payer MEDICARE ==
[~2019-05-20] VITALS: Ht 157.5 cm; Wt 69.5 kg
[2019-05-20] MEDS ORDERED: ACET-683 PO (15:09)
[2019-05-20] MEDS ORDERED: diazePAM 10 MG/2 ML INJ (J3360) IM ONE (15:30)
[2019-05-20] MEDS ORDERED: KETOROLAC 60 MG/2 ML VIAL (J1885) IM ONE (15:30)
--- NOTE | 2019-05-20 16:05 | REP ---
RIGHT HIP AP VIEW: 05/20/2019. Comparison: Two-view right hip 05/13/2019. Clinical history: Right hip pain. Nine osteophyte on the acetabulum and femoral head with some sclerosis and subchondral cystic changes in both bones. I cannot see definite displaced or impacted fracture. I do not see significant change in appearance from last week's examination. There is no visible acetabular fracture or fracture of the pubic rami. Sclerosis along the right side of the symphysis pubis is noted. Sclerosis and spurring at the inferior margin of the right SI joint. Impression: 1. Osteoarthritic changes with subchondral cystic changes and rim osteophytes on both sides of the joint involving acetabulum and femoral head. No evidence of AVN or flattening of the femoral head. No gross evidence for fracture. IF you have high index of suspicion based on your clinical exam, consider CT. Electronically Signed by Joe Guillen MD 05/20/2019 03:56 P
[2019-05-20] MEDS ORDERED: SOMA350T PO (16:11)
[2019-05-20 16:31] VITALS: BP 156/70
--- NOTE | 2019-05-21 16:56 | ED PDOC ---
Post-Departure Follow-Up dr todd faxed formal report of right hip film for fu Alexy Zavala MD May 21, 2019 16:56
== END 2019-05-20 16:44 | disposition home or self-care (01) ==
LOC: M ED 14:54 → EDBD 14:54 → M ED 16:44
DX: M16.11 Unilateral primary osteoarthritis, right hip (principal); I11.9 Hypertensive heart disease without heart failure; E78.5 Hyperlipidemia, unspecified; J30.2 Other seasonal allergic rhinitis; Z88.5 Allergy status to narcotic agent; Z88.6 Allergy status to analgesic agent; Z88.8 Allergy status to other drugs, medicaments and biological substances; Z91.018 Allergy to other foods; Z91.040 Latex allergy status; Z79.02 Long term (current) use of antithrombotics/antiplatelets; Z79.82 Long term (current) use of aspirin; Z79.899 Other long term (current) drug therapy
CPT/HCPCS: 73501; 96372; 99284; J1885; J3360

== ENCOUNTER → 2019-06-23 | Outpatient (CLI) | payer MEDICARE ==
[~2019-06-23] MED LIST changes: +ACET-683 PO; -MECL-68 PO; +MECL1TAB31 PO; +SOMA350T PO
--- NOTE | 2019-06-23 14:24 | REP ---
MRI RIGHT HIP: TECHNIQUE: Coronal T1, STIR through the pelvis, T2 fat sat, right hip all three planes, axial oblique proton density fat sat right hip. There is mild arthritic change at the pubic symphysis with mild subchondral marrow edema in the pubis bilaterally. There is mild arthritic change at the sacroiliac joints with some minor subchondral marrow edema along the inferior aspect of the joints. There is no occult fracture. There is no evidence of avascular necrosis. There is moderate diffuse chondromalacia with moderate acetabular spurring. There is no joint effusion. Diffuse tearing and fraying is noted of the superior labrum. There is a tear of the anterior labrum. There is a complex tear of the posterior labrum with mild fluid surrounding the labral fragments. There are two cysts involving the posterior labrum measuring 4 mm and 5 mm in diameter. There may be some minimal tendinitis along the greater trochanters bilaterally. Visualized intrapelvic structures are unremarkable. IMPRESSION: No occult fracture or avascular necrosis. Moderate chondromalacia and acetabular spurring. Diffuse labral tearing as discussed in detail above. Mild arthritic change and subchondral marrow edema at the pubic symphysis and sacroiliac joints. Electronically Signed by Quinn Mccoy MD 06/23/2019 04:06 P
== END ==
LOC: M RAD 10:52
PROVIDERS: ATTEND Nurse Practitioner Family
DX: M16.11 Unilateral primary osteoarthritis, right hip (principal)

== ENCOUNTER → 2019-07-02 | Outpatient (CLI) | payer MEDICARE ==
[~2019-07-02] MED LIST changes: +E-Z-GAS II EFFERVESCENT PACKET (SODIUM BICARB./CITRIC ACID/SIMETHICONE) As Ordered ONE; +E-Z-HD 98% w/w 340GM SUSP BTL As Ordered ONE; +E-Z-PAQUE 96% w/w SUSP 176GM BTL As Ordered ONE
--- NOTE | 2019-07-02 17:05 | REP ---
Examination Requested: Esophagram Barium Swallow Reason For Exam/Comment: Globus sensation Esophagram: The procedure was performed YUAN Nava, under the direct supervision of Dr. Hoang. The images were reviewed with Dr. Hoang. A single PA chest x-ray is submitted as a mitochondrial disorders counselor film. The superior mediastinal structures are midline. The heart size is within normal limits. The lungs are clear. Liquid barium and gas producing granules were given in the erect position as well as liquid barium in the prone oblique position, in order to perform a double contrast esophagram examination. Oral and pharyngeal stages of the examination were unremarkable. 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 Esophageal transport is efficient and there is no esophagitis, stricture, or mucosal ring noted. There is no hiatal hernia noted. Gastroesophageal reflux is visualized to the level of the nataly. Impression: 1. Small anterior esophageal web. 2. Gastroesophageal reflux to the level of the nataly. 0.3 minutes of fluoroscopy time was utilized for this procedure. Some fluoroscopic images are performed with last image hold technology. These images require no additional radiation. Reviewed by YUAN Hernandez 07/02/2019 01:35 P Electronically Signed by Quinn Hoang MD 07/02/2019 04:56 P
== END ==
LOC: M RAD 09:33
PROVIDERS: ATTEND Otolaryngology
DX: F45.8 Other somatoform disorders (principal); K21.9 Gastro-esophageal reflux disease without esophagitis

== ENCOUNTER → 2019-07-12 | Outpatient (CLI) | payer MEDICARE ==
[~2019-07-12] MED LIST changes: -E-Z-GAS II EFFERVESCENT PACKET (SODIUM BICARB./CITRIC ACID/SIMETHICONE) As Ordered ONE; -E-Z-HD 98% w/w 340GM SUSP BTL As Ordered ONE; -E-Z-PAQUE 96% w/w SUSP 176GM BTL As Ordered ONE
[2019-07-12 13:08] LABS: CALCIUM LEVEL 8.8 MG/DL (8.8-10.2); CREATININE FOR GFR 1.26 MG/DL (0.55-1.30); GLOMERULAR FILTRATION RATE 43.7 (>39); POTASSIUM SERUM 4.1 MEQ/L (3.5-5.1)
== END ==
LOC: M LAB 11:04
PROVIDERS: ATTEND Physician Assistant
DX: I11.9 Hypertensive heart disease without heart failure (principal)

== ENCOUNTER → 2019-10-16 | Outpatient (REF) | payer MEDICARE ==
[2019-10-16 14:29] LABS: HEMATOCRIT 37.7 % (36.0-47.0); HEMOGLOBIN 12.5 g/dl (12.0-15.5); MEAN CORPUSCULAR HEMOGLOBIN 33.7 pg (27.0-33.0); MEAN CORPUSCULAR HGB CONC 33.2 g/dl (32.0-36.5); MEAN CORPUSCULAR VOLUME 101.6 fl (80.0-96.0); PLATELET COUNT, AUTOMATED 236 10^3/uL (150-450); RED BLOOD COUNT 3.71 10^6/uL (4.00-5.40); WHITE BLOOD COUNT 4.8 10^3/uL (4.0-10.0)
[2019-10-16 14:45] LABS: ALBUMIN 3.3 GM/DL (3.2-5.2); BILIRUBIN,TOTAL 0.5 MG/DL (0.2-1.0); CALCIUM LEVEL 8.9 MG/DL (8.8-10.2); CHOLESTEROL RISK RATIO 2.461 (<5); CREATININE FOR GFR 1.19 MG/DL (0.55-1.30); FREE T4 0.9 NG/DL (0.76-1.46); GLOMERULAR FILTRATION RATE 46.7 (>39); POTASSIUM SERUM 3.9 MEQ/L (3.5-5.1); THYROID STIMULATING HORMONE 1.79 uIU/ML (0.358-3.740); TOTAL 25(OH) VITAMIN D 41.7 NG/ML (30.0-100.0); TOTAL PROTEIN 6.6 GM/DL (6.4-8.2)
== END ==
LOC: M PLALAB 11:34
PROVIDERS: ATTEND Family Medicine
DX: D51.9 Vitamin B12 deficiency anemia, unspecified (principal); I11.9 Hypertensive heart disease without heart failure; F32.9 Major depressive disorder, single episode, unspecified; E78.2 Mixed hyperlipidemia; E55.9 Vitamin D deficiency, unspecified

== ENCOUNTER → 2019-11-30 | Outpatient (CLI) | payer MEDICARE ==
[~2019-11-30] MED LIST changes: -ASPI81TA85 PO; +ASPI81TA86 PO; +CLORTHALIDONE PO; +D31000TA2 PO
== END ==
LOC: M LABSMTC 09:34
PROVIDERS: ATTEND Anesthesiology
DX: Z03.818 Encounter for observation for suspected exposure to other biological agents ruled out (principal); Z11.59 Encounter for screening for other viral diseases
CPT/HCPCS: C9803; U0003

== ENCOUNTER 2019-12-03 09:49 | Day surgery (SDC) | payer MEDICARE ==
[~2019-12-03] VITALS: Ht 157.5 cm; Wt 65.8 kg
[~2019-12-03 09:49] MED LIST changes: +ASPI81TA85 PO; -ASPI81TA86 PO; -D31000TA2 PO; +NS 1,000 ML IV ONE; +VITAD1000T PO
[2019-12-03] MEDS ORDERED: propofoL 200 MG/20 ML VIAL As Ordered ONE ×2 (11:29→12:38)
[2019-12-03] MEDS ORDERED: LIDOCAINE 2% 100MG/5ML SDV (FOR ANES.) As Ordered ONE (11:29)
--- NOTE | 2019-12-03 11:46 | ROOR ---
Patient Name: Tatiana Cooley Procedure Date: 12/03/2019 11:23 AM Date of : 1940 Age: 79 Room: [facility] Gender: Female Note Status: Finalized Procedure: Upper Endoscopy + Biopsies + dilatation Indications: Dysphagia, Heartburn, Exclusion of Chow's esophagus Providers: Juanito Cornell MD Referring MD: Frank England MD Requesting Provider: Medicines: Monitored Anesthesia Care Complications: No immediate complications. Procedure: Pre-Anesthesia Assessment: - The heart rate, respiratory rate, oxygen saturations, blood pressure, adequacy of pulmonary ventilation, and response to care were monitored throughout the procedure. The Endoscope was introduced through the mouth, and advanced to the second part of duodenum. The upper GI endoscopy was accomplished without difficulty. The patient tolerated the procedure well. Findings: The Z-line was variable and was found 35 cm from the incisors. Multiple biopsies were obtained with cold forceps for evaluation to rule out Chow's Esophagus randomly at the gastroesophageal junction. A TTS dilator was passed through the scope. Dilation with a 15-16.5-18 mm balloon dilator was performed to 18 mm. A small hiatal hernia was present. Localized mildly erythematous mucosa without bleeding was found in the gastric antrum. Biopsies were taken with a cold forceps for Helicobacter pylori testing. The exam of the duodenum was otherwise normal. Impression: - Z-line variable, 35 cm from the incisors. Dilated. - Small hiatal hernia. - Erythematous mucosa in the antrum. Biopsied. - Multiple biopsies were obtained at the gastroesophageal junction. - The examination was otherwise normal. Recommendation: - Patient has a contact number available for emergencies. The signs and symptoms of potential delayed complications were discussed with the patient. Return to normal activities tomorrow. Written discharge instructions were provided to the patient. - High fiber diet. - Discharge patient to home. - Follow an antireflux regimen. - Continue present medications. - Await pathology results. - Telephone GI clinic for pathology results in 1 week. - Return to referring physician. Juanito Cornell MD Juanito Cornell MD 12/03/2019 11:46:08 AM Electronically signed by Juanito Cornell MD Number of Addenda: 0 Note Initiated On: 12/03/2019 11:23 AM Estimated Blood Loss: Estimated blood loss: none.
--- NOTE | 2019-12-03 12:29 | ROOR ---
Patient Name: Tatiana Cooley Procedure Date: 12/03/2019 11:24 AM Date of : 1940 Age: 79 Room: [facility] Gender: Female Note Status: Finalized Procedure: Total Colonoscopy to Cecum + Cold Snare Polypectomy + random Biopsies Indications: Abdominal pain in the left lower quadrant, Change in bowel habits Providers: Juanito Cornell MD Referring MD: Frank England MD Requesting Provider: Medicines: Monitored Anesthesia Care Complications: No immediate complications. Procedure: Pre-Anesthesia Assessment: - The heart rate, respiratory rate, oxygen saturations, blood pressure, adequacy of pulmonary ventilation, and response to care were monitored throughout the procedure. The Colonoscope was introduced through the anus and advanced to the cecum, identified by appendiceal orifice and ileocecal valve. The colonoscopy was performed without difficulty. The patient tolerated the procedure well. The quality of the bowel preparation was excellent. Findings: The perianal and digital rectal examinations were normal. Non-bleeding internal hemorrhoids were found during retroflexion. The hemorrhoids were small and Grade I (internal hemorrhoids that do not prolapse). Non-bleeding internal hemorrhoids were found during retroflexion. The hemorrhoids were small and Grade I (internal hemorrhoids that do not prolapse). Scattered small-mouthed diverticula were found in the recto-sigmoid colon, sigmoid colon and descending colon. A small polyp was found in the ascending colon. The polyp was sessile. The polyp was removed with a cold snare. Resection and retrieval were complete. To prevent bleeding after the polypectomy, one hemostatic clip was successfully placed (MR conditional). There was no bleeding at the end of the procedure. Biopsies for histology were taken with a cold forceps from the ascending colon, transverse colon and descending colon for evaluation of microscopic colitis. The exam was otherwise without abnormality on direct and retroflexion views. Impression: - Non-bleeding internal hemorrhoids. - Non-bleeding internal hemorrhoids. - Diverticulosis in the recto-sigmoid colon, in the sigmoid colon and in the descending colon. - One small polyp in the ascending colon, removed with a cold snare. Resected and retrieved. Clip (MR conditional) was placed. - The examination was otherwise normal on direct and retroflexion views. - Biopsies were taken with a cold forceps from the ascending colon, transverse colon and descending colon for evaluation of microscopic colitis. - The exam was otherwise normal to the cecum. Recommendation: - Patient has a contact number available for emergencies. The signs and symptoms of potential delayed complications were discussed with the patient. Return to normal activities tomorrow. Written discharge instructions were provided to the patient. - High fiber diet. - Discharge patient to home. - Continue present medications. - Await pathology results. - Telephone GI clinic for pathology results in 1 week. - Repeat colonoscopy for symptoms only. - Return to referring physician. - The findings and recommendations were discussed with the patient. Juanito Cornell MD Juanito Cornell MD 12/03/2019 12:28:54 PM Electronically signed by Juanito Cornell MD Number of Addenda: 0 Note Initiated On: 12/03/2019 11:24 AM Estimated Blood Loss: Estimated blood loss: none.
[2019-12-03 13:00] VITALS: BP 152/68
== END 2019-12-03 13:28 | disposition home or self-care (01) ==
LOC: M OPP 09:49
PROVIDERS: ATTEND Internal Medicine Gastroenterology
DX: K64.0 First degree hemorrhoids (principal); D12.6 Benign neoplasm of colon, unspecified; K57.30 Diverticulosis of large intestine without perforation or abscess without bleeding; R10.32 Left lower quadrant pain; R19.4 Change in bowel habit; K22.5 Diverticulum of esophagus, acquired; K44.9 Diaphragmatic hernia without obstruction or gangrene; K31.89 Other diseases of stomach and duodenum; R13.10 Dysphagia, unspecified; R12 Heartburn; Z79.82 Long term (current) use of aspirin; Z79.899 Other long term (current) drug therapy; Z88.5 Allergy status to narcotic agent; Z88.8 Allergy status to other drugs, medicaments and biological substances; Z91.040 Latex allergy status

== ENCOUNTER → 2020-01-29 | Outpatient (REF) | payer MEDICARE ==
[~2020-01-29] MED LIST changes: -ASPI81TA85 PO; +ASPI81TA86 PO; +D31000TA2 PO; -NS 1,000 ML IV ONE; -VITAD1000T PO
[2020-03-18 12:42] LABS: HEMATOCRIT 38.6 % (36.0-47.0); HEMOGLOBIN 12.6 g/dl (12.0-15.5); MEAN CORPUSCULAR HEMOGLOBIN 33.6 pg (27.0-33.0); MEAN CORPUSCULAR HGB CONC 32.6 g/dl (32.0-36.5); MEAN CORPUSCULAR VOLUME 102.9 fl (80.0-96.0); PLATELET COUNT, AUTOMATED 231 10^3/uL (150-450); RED BLOOD COUNT 3.75 10^6/uL (4.00-5.40); WHITE BLOOD COUNT 6.5 10^3/uL (4.0-10.0)
[2020-04-20 08:38] LABS: ALBUMIN 3.6 GM/DL (3.2-5.2); BILIRUBIN,TOTAL 0.7 MG/DL (0.2-1.0); CALCIUM LEVEL 9.8 MG/DL (8.8-10.2); CREATININE FOR GFR 1.32 MG/DL (0.55-1.30); GLOMERULAR FILTRATION RATE 41.3 (>39); POTASSIUM SERUM 3.9 MEQ/L (3.5-5.1); TOTAL PROTEIN 7.2 GM/DL (6.4-8.2)
== END ==
LOC: M SFHCADAM 09:57
PROVIDERS: ATTEND Family Medicine
DX: R19.7 Diarrhea, unspecified (principal)

== ENCOUNTER → 2020-01-30 | Outpatient (REF) | payer MEDICARE | LOC: M LAB REF 14:04 | PROVIDERS: ATTEND Family Medicine | DX: R19.7 Diarrhea, unspecified (principal) ==

== ENCOUNTER → 2020-02-27 | Outpatient (REF) | payer MEDICARE | LOC: M LAB REF 19:22 | PROVIDERS: ATTEND Dermatology | DX: L82.0 Inflamed seborrheic keratosis (principal) ==

== ENCOUNTER → 2020-07-03 | Outpatient (CLI) | payer MEDICARE ==
--- NOTE | 2020-07-04 05:52 | REP ---
INDICATION: RIGHT HIP PIAN COMPARISON: 05/13/2019 TECHNIQUE: AP and frog-lateral views of the right hip FINDINGS: Relatively stable degenerative changes are again noted including increased sclerosis to the acetabulum with subtle subchondral heterogeneity involving the acetabulum and femoral head along with marginal spurring and joint space narrowing. No acute fracture or dislocation. No obvious healed injury. No periarticular loose bodies/calcifications. IMPRESSION: Moderate arthritic changes similar to prior examination. <Electronically signed by Dinh Yi > 07/04/20 [id number]
== END ==
LOC: M ADAMS 14:05
PROVIDERS: ATTEND Family Medicine
DX: M16.11 Unilateral primary osteoarthritis, right hip (principal); M25.551 Pain in right hip
CPT/HCPCS: 73502; G0463

== ENCOUNTER → 2020-10-07 | Outpatient (CLI) | payer MEDICARE ==
[2020-10-07 11:04] LABS: HEMATOCRIT 36.7 % (36.0-47.0); HEMOGLOBIN 11.9 g/dl (12.0-15.5); MEAN CORPUSCULAR HEMOGLOBIN 33.3 pg (27.0-33.0); MEAN CORPUSCULAR HGB CONC 32.4 g/dl (32.0-36.5); MEAN CORPUSCULAR VOLUME 102.8 fl (80.0-96.0); PLATELET COUNT, AUTOMATED 203 10^3/uL (150-450); RED BLOOD COUNT 3.57 10^6/uL (4.00-5.40); WHITE BLOOD COUNT 4.2 10^3/uL (4.0-10.0)
[2020-10-07 11:42] LABS: ALBUMIN 3.3 GM/DL (3.2-5.2); BILIRUBIN,TOTAL 0.4 MG/DL (0.2-1.0); CALCIUM LEVEL 9.3 MG/DL (8.8-10.2); CHOLESTEROL RISK RATIO 2.645 (<5); CREATININE FOR GFR 1.14 MG/DL (0.55-1.30); FOLATE 10.3 NG/ML (>5.4); FREE T4 0.79 NG/DL (0.76-1.46); GLOMERULAR FILTRATION RATE 48.9 (>39); POTASSIUM SERUM 4.3 MEQ/L (3.5-5.1); THYROID STIMULATING HORMONE 2.8 uIU/ML (0.358-3.740); TOTAL PROTEIN 6.7 GM/DL (6.4-8.2)
== END ==
LOC: M LAB 10:29
PROVIDERS: ATTEND Family Medicine
DX: R41.3 Other amnesia (principal); D51.9 Vitamin B12 deficiency anemia, unspecified; E78.2 Mixed hyperlipidemia; I11.9 Hypertensive heart disease without heart failure; F32.9 Major depressive disorder, single episode, unspecified

== ENCOUNTER → 2021-01-21 | Outpatient (CLI) | payer MEDICARE ==
--- NOTE | 2021-01-22 08:32 | REP ---
INDICATION: SACROCOCCYGEAL DISORDERS, NOT ELSEWHERE CLASSIFIED. COMPARISON: None. TECHNIQUE: Three views FINDINGS: Osteoporosis. Mild degenerative change of the sacroiliac joints. Degenerative changes lower lumbar spine. No fracture. 1 cm anterolisthesis L4 on L5 and L5 on S1. Marked facet arthropathy lower lumbar spine. IMPRESSION: Osteoporosis. Arthropathy and listhesis lower lumbar spine. Negative radiographs of the sacrum and coccyx. <Electronically signed by Eamon Soler > 01/22/21 [id number]
== END ==
LOC: M RAD 17:33
PROVIDERS: ATTEND Physician Assistant
DX: M81.0 Age-related osteoporosis without current pathological fracture (principal); M51.36 Other intervertebral disc degeneration, lumbar region; M53.3 Sacrococcygeal disorders, not elsewhere classified

== ENCOUNTER → 2021-10-14 | Outpatient (CLI) | payer MEDICARE ==
[~2021-10-14] MED LIST changes: -D31000TA2 PO; +LOSA100T45; -LOSA100T50; +VITA100093 PO
[2021-10-14 13:43] LABS: HEMATOCRIT 34.5 % (36.0-47.0); HEMOGLOBIN 11.5 g/dl (12.0-15.5); MEAN CORPUSCULAR HEMOGLOBIN 34.1 pg (27.0-33.0); MEAN CORPUSCULAR HGB CONC 33.3 g/dl (32.0-36.5); MEAN CORPUSCULAR VOLUME 102.4 fl (80.0-96.0); PLATELET COUNT, AUTOMATED 208 10^3/uL (150-450); RED BLOOD COUNT 3.37 10^6/uL (4.00-5.40); WHITE BLOOD COUNT 4.5 10^3/uL (4.0-10.0)
[2021-10-14 19:22] LABS: ALBUMIN 3.5 GM/DL (3.2-5.2); BILIRUBIN,TOTAL 0.5 MG/DL (0.2-1.0); CALCIUM LEVEL 9.4 MG/DL (8.8-10.2); CHOLESTEROL RISK RATIO 2.484 (<5); CREATININE FOR GFR 1.09 MG/DL (0.55-1.30); FREE T4 0.86 NG/DL (0.76-1.46); GLOMERULAR FILTRATION RATE 51.4 (>32); THYROID STIMULATING HORMONE 1.96 uIU/ML (0.358-3.740); TOTAL PROTEIN 6.6 GM/DL (6.4-8.2)
== END ==
LOC: M PLALAB 10:38
PROVIDERS: ATTEND Family Medicine
DX: I11.9 Hypertensive heart disease without heart failure (principal); E78.2 Mixed hyperlipidemia; F32.9 Major depressive disorder, single episode, unspecified

== ENCOUNTER → 2021-11-17 | Outpatient (REF) | payer MEDICARE ==
[2021-11-17 12:47] LABS: FERRITIN 27 NG/ML (8-252); IRON (FE) 91 UG/DL (50-170); PERCENT SATURATION 32.2 % (13.2-45.0); TOTAL IRON BINDING CAPACITY 283 UG/DL (250-450); TOTAL PROTEIN 6.7 GM/DL (6.4-8.2)
[2021-11-19 09:21] LABS: ALBUMIN 3.77 GM/DL (3.29-5.55); ALBUMIN % 56.3 % (55.8-66.1); ALPHA-1-GLOBULIN % 4.7 % (2.9-4.9); ALPHA-1-GLOBULINS 0.31 GM/DL (0.17-0.41); ALPHA-2-GLOBULINS 0.64 GM/DL (0.42-0.99); ALPHA-2-GLOBULINS % 9.5 % (7.1-11.8); BETA-1-GLOBULINS 0.48 GM/DL (0.28-0.60); BETA-1-GLOBULINS % 7.2 % (4.7-7.2); BETA-2-GLOBULINS 0.53 GM/DL (0.19-0.55); BETA-2-GLOBULINS % 7.9 % (3.2-6.5); GAMMA GLOBULINS 0.96 GM/DL (0.65-1.58)
[2021-11-19 09:22] LABS: GAMMA GLOBULIN % 14.4 % (11.1-18.8)
== END ==
LOC: M SFHCADAM 09:45
PROVIDERS: ATTEND Family Medicine
DX: D53.9 Nutritional anemia, unspecified (principal)

== ENCOUNTER → 2022-01-01 | Outpatient (REF) | payer MEDICARE ==
[2022-01-01 17:13] LABS: HEMATOCRIT 34.6 % (36.0-47.0); HEMOGLOBIN 11.6 g/dl (12.0-15.5); MEAN CORPUSCULAR HEMOGLOBIN 34.3 pg (27.0-33.0); MEAN CORPUSCULAR HGB CONC 33.5 g/dl (32.0-36.5); MEAN CORPUSCULAR VOLUME 102.4 fl (80.0-96.0); PLATELET COUNT, AUTOMATED 196 10^3/uL (150-450); RED BLOOD COUNT 3.38 10^6/uL (4.00-5.40); WHITE BLOOD COUNT 5.2 10^3/uL (4.0-10.0)
[2022-01-01 17:35] LABS: INR 0.97; PROTHROMBIN TIME 13.2 SECONDS (12.7-14.5)
[2022-01-01 18:12] LABS: ALBUMIN 3.5 GM/DL (3.2-5.2); BILIRUBIN,TOTAL 0.5 MG/DL (0.2-1.0); CALCIUM LEVEL 9.5 MG/DL (8.8-10.2); CREATININE FOR GFR 1.19 MG/DL (0.55-1.30); GLOMERULAR FILTRATION RATE 46.3 (>32); POTASSIUM SERUM 3.4 MEQ/L (3.5-5.1); TOTAL PROTEIN 6.8 GM/DL (6.4-8.2)
[2022-01-01 18:23] LABS: ERYTHROCYTE SEDIMENTATION RATE 23 mm/hr (0-30)
== END ==
LOC: M SFHCADAM 11:39
PROVIDERS: ATTEND Physician Assistant
DX: Z01.818 Encounter for other preprocedural examination (principal); I51.81 Takotsubo syndrome

== ENCOUNTER → 2022-01-01 | Outpatient (CLI) | payer MEDICARE | LOC: M ADAMS 12:21 | PROVIDERS: ATTEND Physician Assistant | DX: Z01.818 Encounter for other preprocedural examination (principal); Z79.899 Other long term (current) drug therapy ==

== ENCOUNTER → 2022-01-06 | Outpatient (CLI) | payer MEDICARE ==
[2022-01-06 17:23] LABS: BASO % 0.6 % (0.0-1.0); EOS # 0.1 10^3/uL (0.0-0.5); EOS % 1.3 % (0.0-3.0); HEMATOCRIT 33.2 % (36.0-47.0); HEMOGLOBIN 11.2 g/dl (12.0-15.5); LYMPH # 2.4 10^3/uL (1.5-5.0); LYMPH % 46.2 % (24.0-44.0); MEAN CORPUSCULAR HEMOGLOBIN 34.9 pg (27.0-33.0); MEAN CORPUSCULAR HGB CONC 33.7 g/dl (32.0-36.5); MEAN CORPUSCULAR VOLUME 103.4 fl (80.0-96.0); MONO # 0.5 10^3/uL (0.0-0.8); MONO % 10.3 % (2.0-8.0); NEUTROPHILS # 2.2 10^3/uL (1.5-8.5); NEUTROPHILS % 41.2 % (36.0-66.0); PLATELET COUNT, AUTOMATED 193 10^3/uL (150-450); RED BLOOD COUNT 3.21 10^6/uL (4.00-5.40); WHITE BLOOD COUNT 5.3 10^3/uL (4.0-10.0)
[2022-01-06 17:46] LABS: ERYTHROCYTE SEDIMENTATION RATE 31 mm/hr (0-30)
== END ==
LOC: M PLALAB 14:52
PROVIDERS: ATTEND Physician Assistant Surgical
DX: Z01.818 Encounter for other preprocedural examination (principal)

== ENCOUNTER → 2022-09-10 | Outpatient (CLI) | payer MEDICARE | LOC: M ADAMS 10:02 | PROVIDERS: ATTEND Physician Assistant | DX: M19.012 Primary osteoarthritis, left shoulder (principal); M11.212 Other chondrocalcinosis, left shoulder ==

== ENCOUNTER → 2022-09-28 | Outpatient (REF) | payer MEDICARE ==
[~2022-09-28] MED LIST changes: +FLUT50SP17; -FLUTISP
== END ==
LOC: M PLALAB 14:26
PROVIDERS: ATTEND Nurse Practitioner Family
DX: Z12.4 Encounter for screening for malignant neoplasm of cervix (principal)

== ENCOUNTER → 2022-09-28 | Outpatient (CLI) | payer MEDICARE | LOC: M WHC 08:50 | PROVIDERS: ATTEND Nurse Practitioner Family | DX: Z01.419 Encounter for gynecological examination (general) (routine) without abnormal findings (principal); Z12.31 Encounter for screening mammogram for malignant neoplasm of breast; N95.8 Other specified menopausal and perimenopausal disorders; N95.1 Menopausal and female climacteric states; L82.1 Other seborrheic keratosis | CPT/HCPCS: 77063; 77067; 87624; G0101; G0123 ==

== ENCOUNTER → 2022-11-17 | Outpatient (REF) | payer MEDICARE ==
[~2022-11-17] MED LIST changes: -LOSA100T45; +LOSA100T46
[2022-11-17 16:14] LABS: HEMATOCRIT 35.4 % (36.0-47.0); HEMOGLOBIN 12.1 g/dl (12.0-15.5); MEAN CORPUSCULAR HEMOGLOBIN 34.9 pg (27.0-33.0); MEAN CORPUSCULAR HGB CONC 34.2 g/dl (32.0-36.5); PLATELET COUNT, AUTOMATED 211 10^3/uL (150-450); RED BLOOD COUNT 3.47 10^6/uL (4.00-5.40); WHITE BLOOD COUNT 5.7 10^3/uL (4.0-10.0)
[2022-11-17 16:21] LABS: HEMOGLOBIN A1c 5.1 % (4.0-6.0)
[2022-11-17 16:22] LABS: ALBUMIN 3.7 G/DL (3.2-5.2); BILIRUBIN,TOTAL 0.6 MG/DL (0.3-1.2); CALCIUM LEVEL 8.7 MG/DL (8.3-10.6); CHOLESTEROL RISK RATIO 2.53 (<5); CREATININE FOR GFR 1.04 MG/DL (0.55-1.30); FREE T4 0.87 NG/DL (0.89-1.76); GLOMERULAR FILTRATION RATE 54.1 (>32); HDL CHOLESTEROL 57.3 MG/DL (>40); LDL CHOLESTEROL 66.1 MG/DL (<100); NON-HDL-C 87.7 MG/DL; POTASSIUM SERUM 3.5 MMOL/L (3.5-5.1); TOTAL PROTEIN 6.8 G/DL (5.7-8.2)
[2022-11-17 16:23] LABS: FOLATE 11.68 NG/ML (>5.4)
[2022-11-17 16:24] LABS: THYROID STIMULATING HORMONE 3.157 uIU/ML (0.55-4.78)
== END ==
LOC: M SFHCADAM 10:03
PROVIDERS: ATTEND Family Medicine
DX: D53.9 Nutritional anemia, unspecified (principal); D51.9 Vitamin B12 deficiency anemia, unspecified; E78.2 Mixed hyperlipidemia; I11.9 Hypertensive heart disease without heart failure; R73.09 Other abnormal glucose; R10.13 Epigastric pain

== ENCOUNTER → 2023-07-08 | Outpatient (REF) | payer MEDICARE ==
[~2023-07-08] MED LIST changes: -FLUT50SP17; +FLUTISP; +MECL-209 PO; -MECL1TAB31 PO
[2023-07-08 16:14] LABS: BASO % 0.4 % (0.0-1.0); EOS # 0.1 10^3/uL (0.0-0.5); EOS % 1.6 % (0.0-3.0); HEMOGLOBIN 11.5 g/dl (12.0-15.5); LYMPH # 1.9 10^3/uL (1.5-5.0); LYMPH % 33.6 % (24.0-44.0); MEAN CORPUSCULAR HEMOGLOBIN 34.5 pg (27.0-33.0); MEAN CORPUSCULAR HGB CONC 32.9 g/dl (32.0-36.5); MEAN CORPUSCULAR VOLUME 105.1 fl (80.0-96.0); MONO # 0.5 10^3/uL (0.0-0.8); MONO % 8.5 % (2.0-8.0); NEUTROPHILS # 3.1 10^3/uL (1.5-8.5); NEUTROPHILS % 55.5 % (36.0-66.0); PLATELET COUNT, AUTOMATED 209 10^3/uL (150-450); RED BLOOD COUNT 3.33 10^6/uL (4.00-5.40); WHITE BLOOD COUNT 5.6 10^3/uL (4.0-10.0)
[2023-07-08 16:34] LABS: ERYTHROCYTE SEDIMENTATION RATE 29 mm/hr (0-30)
[2023-07-08 16:41] LABS: C REACTIVE PROTEIN QUANTITATIV 1.1 MG/DL (<1.0)
[2023-07-08 16:43] LABS: ALBUMIN 3.4 G/DL (3.2-5.2); BILIRUBIN,TOTAL 0.5 MG/DL (0.3-1.2); CALCIUM LEVEL 9.3 MG/DL (8.3-10.6); CREATININE FOR GFR 1.17 MG/DL (0.55-1.30); GLOMERULAR FILTRATION RATE 47.1 (>32); POTASSIUM SERUM 4.2 MMOL/L (3.5-5.1); TOTAL PROTEIN 7.1 G/DL (5.7-8.2)
== END ==
LOC: M SFHCADAM 12:04
PROVIDERS: ATTEND Physician Assistant
DX: R19.4 Change in bowel habit (principal); R10.30 Lower abdominal pain, unspecified; R19.7 Diarrhea, unspecified

== ENCOUNTER → 2023-10-12 | Outpatient (CLI) | payer MEDICARE | LOC: M WHC 09:30 | PROVIDERS: ATTEND Family Medicine | DX: Z12.31 Encounter for screening mammogram for malignant neoplasm of breast (principal); R92.322 Mammographic fibroglandular density, left breast; M85.851 Other specified disorders of bone density and structure, right thigh; M85.852 Other specified disorders of bone density and structure, left thigh ==

== ENCOUNTER → 2023-10-12 | Outpatient (CLI) | payer MEDICARE | LOC: M WHC 08:50 | PROVIDERS: ATTEND Nurse Practitioner Family | DX: Z12.31 Encounter for screening mammogram for malignant neoplasm of breast (principal); R92.322 Mammographic fibroglandular density, left breast ==

== ENCOUNTER → 2023-12-08 | Outpatient (REF) | payer MEDICARE ==
[2023-12-08 18:05] LABS: HEMATOCRIT 33.8 % (36.0-47.0); MEAN CORPUSCULAR HEMOGLOBIN 34.5 pg (27.0-33.0); MEAN CORPUSCULAR HGB CONC 32.5 g/dl (32.0-36.5); PLATELET COUNT, AUTOMATED 185 10^3/uL (150-450); RED BLOOD COUNT 3.19 10^6/uL (4.00-5.40); WHITE BLOOD COUNT 4.3 10^3/uL (4.0-10.0)
[2023-12-08 18:33] LABS: TOTAL 25(OH) VITAMIN D 53.8 NG/ML (20.0-100.0)
[2023-12-08 18:34] LABS: ALBUMIN 3.3 G/DL (3.2-5.2); BILIRUBIN,TOTAL 0.4 MG/DL (0.3-1.2); CHOLESTEROL RISK RATIO 2.34 (<5); CREATININE FOR GFR 1.17 MG/DL (0.55-1.30); HDL CHOLESTEROL 64.1 MG/DL (>40); LDL CHOLESTEROL 73.5 MG/DL (<100); MAGNESIUM LEVEL 1.8 MG/DL (1.8-2.4); NON-HDL-C 85.9 MG/DL; POTASSIUM SERUM 4.2 MMOL/L (3.5-5.1); TOTAL PROTEIN 6.6 G/DL (5.7-8.2)
[2023-12-08 18:35] LABS: FREE T4 0.85 NG/DL (0.89-1.76); THYROID STIMULATING HORMONE 4.095 uIU/ML (0.55-4.78)
[2023-12-08 18:54] LABS: FOLATE 8.45 NG/ML (>5.4)
== END ==
LOC: M SFHCADAM 11:37
PROVIDERS: ATTEND Family Medicine
DX: M19.012 Primary osteoarthritis, left shoulder (principal); I11.9 Hypertensive heart disease without heart failure; E78.2 Mixed hyperlipidemia; R73.09 Other abnormal glucose; M85.80 Other specified disorders of bone density and structure, unspecified site; R41.3 Other amnesia

== ENCOUNTER 2023-12-15 11:51 | Emergency (ER) | payer MEDICARE ==
[~2023-12-15] VITALS: Ht 157.5 cm; Wt 60.9 kg
[2023-12-15] MEDS: ACETAMINOPHEN TAB 650MG DOSE (2X325MG) PO ONE (12:52)
[2023-12-15 14:21] VITALS: O2SAT 98
[2023-12-15 15:29] VITALS: BP 192/80; TEMP 97.3
== END 2023-12-15 15:34 | disposition home or self-care (01) ==
LOC: M ED 11:51
DX: S52.572A Other intraarticular fracture of lower end of left radius, initial encounter for closed fracture (principal); S01.511A Laceration without foreign body of lip, initial encounter; S00.83XA Contusion of other part of head, initial encounter; W01.198A Fall on same level from slipping, tripping and stumbling with subsequent striking against other object, initial encounter; M43.12 Spondylolisthesis, cervical region; M25.78 Osteophyte, vertebrae; M50.31 Other cervical disc degeneration, high cervical region; M85.832 Other specified disorders of bone density and structure, left forearm; M17.12 Unilateral primary osteoarthritis, left knee; H70.11 Chronic mastoiditis, right ear; I10 Essential (primary) hypertension; F41.9 Anxiety disorder, unspecified; F32.9 Major depressive disorder, single episode, unspecified; Z91.048 Other nonmedicinal substance allergy status; Z88.5 Allergy status to narcotic agent; Z88.6 Allergy status to analgesic agent; Z88.8 Allergy status to other drugs, medicaments and biological substances; Z91.040 Latex allergy status; Z96.651 Presence of right artificial knee joint; Y92.410 Unspecified street and highway as the place of occurrence of the external cause; Y93.89 Activity, other specified; Y99.9 Unspecified external cause status; Z79.82 Long term (current) use of aspirin; Z79.899 Other long term (current) drug therapy

== ENCOUNTER → 2024-05-08 | Outpatient (REF) | payer MEDICARE | LOC: M SFHCADAM 09:50 | PROVIDERS: ATTEND Family Medicine | DX: D64.9 Anemia, unspecified (principal) ==

== ENCOUNTER → 2024-05-08 | Outpatient (CLI) | payer MEDICARE ==
[2024-05-08 12:11] LABS: PERCENT SATURATION 27.3 % (13.2-45.0)
[2024-05-08 12:13] LABS: FERRITIN 24.1 NG/ML (7.3-270.7)
[2024-05-09 15:56] LABS: PROTEIN, TOTAL SO 6.8 g/dL (6.1-8.1)
[2024-05-11 09:17] LABS: ALBUMIN SO 3.8 g/dL (3.8-4.8); ALPHA 1 GLOBULINS SO 0.3 g/dL (0.2-0.3); ALPHA 2 GLOBULINS SO 0.5 g/dL (0.5-0.9); BETA 2 GLOBULIN SO 0.6 g/dL (0.2-0.5); BETA GLOBULIN SO 0.5 g/dL (0.4-0.6); GAMMA GLOBULINS SO 1.1 g/dL (0.8-1.7)
== END ==
LOC: M LAB 10:28
PROVIDERS: ATTEND Family Medicine
DX: D64.9 Anemia, unspecified (principal)

== ENCOUNTER → 2025-01-18 | Outpatient (REF) | payer MEDICARE ==
[~2025-01-18] MED LIST changes: +AMLO1TAB24 PO; +ASPI81TA26 PO; -CARV6.25; +CARV6.25 PO; -FLUTISP; +FLUTISP NARES; -LOSA100T46; +LOSA100T46 PO; -SIMV40TA20; +SIMV40TA20 PO; +ZOLO100T PO
== END ==
LOC: M SFHCADAM 16:56
PROVIDERS: ATTEND Physician Assistant
DX: R35.0 Frequency of micturition (principal)